=== PATIENT | male | born 2000 | race Caucasian/White ===

== ENCOUNTER 2023-10-29 22:45 | Emergency (ER) | payer OTHER, SELFPAY ==
[2023-10-29 22:49] VITALS: BP 170/100; PULSE 135; RESP 18; TEMP 36.6; O2SAT 97; BMI 33.5
--- NOTE | 2023-10-29 23:08 | PC.NURSE ---
Pt states he has aspergers and is known to chewing on fingernail. On thursday noticed pain and swelling to right middle finger and was seen and evaluated at [place] [facility] where they did an i&d with a small amout of drainage. States they only put him on an oral antibiotic and since then the pain and swelling has increased.
--- NOTE | 2023-10-29 23:21 | ED_ITS ---
HPI - Extremity Injury (Upper) General Chief Complaint: Extremity Injury, Upper Stated Complaint: R HAND MIDDLE FINGER POSS INFECTION Time Seen by Provider: 10/29/23 22:50 Source: patient Mode of arrival: walk-in Limitations: no limitations History of Present Illness HPI narrative: The patient chews his nails and cuticles. He developed redness, pain and swelling on 10/26/23 in the right middle finger. He went to [place] ED 10/27/23 and was prescribed keflex. He also had an incision and drainage of the paronychia but only a tiny incision , per the mother, and not much drained out . She gave the patient ibuprofen and they soaked the finger in epsom salts but despite that and taking the antibiotics, the redness and pain has worsened. The redness now extends to the right 3rd MCP. No systemic complaints such as fever or vomiting. Related Data Previous Rx's Medication Instructions Recorded clindamycin HCl 150 mg capsule 450 mg (3 x 150 mg) PO QID 7 days 10/30/23 #84 caps Allergies Allergy/AdvReac Type Severity Reaction Status Date / Time No Known Drug Allergies Allergy Verified 10/29/23 22:55 [facility] Social History Smoking status: Never smoker Exam Narrative Exam Narrative: Nurses notes and vital signs reviewed and patient is not hypoxic. afebrile General: Anxious but in no apparent distress. Cardiovascular: Tachycardia. Respiratory: No accessory muscle use or respiratory distress. Lungs are clear to auscultation, no wheezing, rales or rhonchi Musculoskeletal: RIGHT HAND: tenderness, swelling, erythema and warmth to the right middle finger with marked swelling at the distal right 3rd phalanx. Remainder of the right hand with normal ROM. no right upper extremity edema/s welling Neurological: A&O x4. No cranial nerve dysfunction observed. No truncal ataxia. Moves all extremities. Sensation intact. Psychiatric: Cooperative and interactive. Normal mood and affect. Constitutional Vital Signs, click to edit/add: Last Vital Signs Temp 97.9 F 10/29/23 22:49 Pulse 127 H 10/30/23 00:28 Resp 16 10/30/23 00:28 BP 126/88 10/30/23 00:28 Pulse Ox 100 10/30/23 00:28 O2 Del Method Room Air 10/29/23 22:49 Course Vital Signs Vital signs: Vital Signs Temperature 97.9 F 10/29/23 22:49 Pulse Rate 135 H 10/29/23 22:49 Respiratory Rate 18 10/29/23 22:49 Blood Pressure 170/100 H 10/29/23 22:49 Pulse Oximetry 97 10/29/23 22:49 Oxygen Delivery Method Room Air 10/29/23 22:49 Temperature 97.9 F 10/29/23 22:49 Pulse Rate 127 H 10/30/23 00:28 Respiratory Rate 16 10/30/23 00:28 Blood Pressure 126/88 10/30/23 00:28 Pulse Oximetry 100 10/30/23 00:28 Oxygen Delivery Method Room Air 10/29/23 22:49 MDM - Extremity Injury (Upper) MDM Narrative Medical decision making narrative: The patient is very anxious and has a fear of needles and surgical procedures. He is autistic. I talked with him and the mother and I were able to get him to agree to get a peripheral IV so that he could be given ativan and dilaudid. He will also be given Zofran to prevent vomiting. I will then apply a digital block to the patient's right middle finger so that I can properly drain the paronychia. he will receive IV Clindamycin 900mg and then be discharged home with prescription for additional Clindamycin to be taken orally QID. I will refer him to Dr Aggarwal in [place] - general surgeon regional controller - for follow up. Mother given samples of Hibiclens solution to use for soaking of the right hand until the infection clears. Incision and drainage: A single layer of iodine was used to prep the area. Drapes were placed to ensure isolation of the abscess and surrounding skin tissue. A digital block was performed with 1% lidocaine. Incision was made with an 11 blade to the full dimension of the abscess, significant amount purulent material was expressed. Culture was obtained and sent to the lab. The cavity was irrigated with syringe of bupivicaine after flushing with saline. Pressure was held for 10 minutes to staunch bleeding and then a dry sterile dressing was placed. Patient tolerated the procedure well. Discharge Plan Discharge Chief Complaint: Extremity Injury, Upper Clinical Impression: Paronychia of finger of right hand, Cellulitis of finger of right hand Patient Disposition: Home, Self-Care Time of Disposition Decision: 00:41 Prescriptions / Home Meds: New clindamycin HCl 150 mg capsule 450 mg PO QID 7 Days Qty: 84 0RF Instructions: Paronychia (ED), Abscess Incision and Drainage (DC) Stand Alone Forms: Portal Instructions Referrals: Physician,Non-Staff, MD [Primary Care Provider] - 1 week Procedures ED ID Incision & Drainage I&D Type: abcess Site: finger (3rd) Side (if applicable): right Sedation/analgesia: none Anesthetic used: bupivacaine Technique: incised with #11 blade Irrigation: Yes Packing used: none
[2023-10-29] MEDS: LORAZEPAM 2 MG/ML 1 ML VIAL 1 MG IV (23:38)
[2023-10-29] MEDS: ONDANSETRON PF 4 MG/2 ML VIAL IV (23:41)
[2023-10-29] MEDS: CLINDAMYCIN PHOSPHATE/D5W 900 MG/50 ML PIGGYBACK 100 MG IV (23:56)
[2023-10-29] MEDS: HYDROMORPHONE HCL 1 MG/ML CARTRIDGE IVP (23:56)
[2023-10-30 00:28] VITALS: BP 126/88; PULSE 127; RESP 16; O2SAT 100
[2023-10-30] MEDS: BUPIVACAINE HCL 0.5% PF 50 MG/10 ML VIAL INJ (00:38)
--- NOTE | 2023-10-30 00:56 | PC.NURSE ---
right middle finger dressed in telfa and coban
== END 2023-10-30 01:01 | disposition home or self-care (01) ==
PROVIDERS: Emergency Provider Emergency Medicine
DX: L03.011 Cellulitis of right finger (principal); F84.0 Autistic disorder
CPT/HCPCS: 10060; 87070; 87150; 87186; 96365; 96375; 99284; J0665; J0736; J1170; J2060; J2405

== ENCOUNTER 2023-11-01 12:18 | Observation (INO) | payer OTHER, SELFPAY ==
[2023-11-01] VITALS (7 sets, daily range): BP systolic 138–156; BP diastolic 88–94; PULSE 87–107; RESP 16–18; TEMP 36.7–36.8; O2SAT 95–98; BMI 33.5; BMI 32.6
--- OUTSIDE RECORDS SUMMARY | 2023-11-01 12:40 | XMS_ITS ---
Author Name Unknown Organization [facility] Care Team Providers Care Graduate Teacher Education Name Role Phone NO PCP, NO PCP Primary Care Unavailable HERLINDA LECHUGA Attending Unavailable SUSANNE MERA Attending Unavailable SUSANNE MERA Referring Unavailable NO PCP, NO PCP Primary Care Unavailable NO PCP, NO PCP Primary Care Unavailable LUCIEN KENT Attending Unavailable LUCIEN KENT Attending Unavailable LUCIEN KENT Referring Unavailable NO PCP, NO PCP Primary Care Unavailable Purpose PROBLEMS DATE TYPE CONDITION / CODE ATTENDING STATUS [facility] 10/29/2023 Unknown Local infection of the skin and subcutaneous tissue, unspecified / L08.9(ICD-10) LUCIEN KENT [facility] 10/27/2023 Unknown Cellulitis of ri ght finger / L03.011(ICD-10) HERLINDA LECHUGA [facility] 10/27/2023 Unknown Finger Pain / FREETEXT(AOF) HERLINDA LECHUGA [facility] 10/27/2023 Unknown SWELLING MIDDLE RT FINGER / UNK(Unknown) HERLINDA LECHUGA [facility] PROCEDURES No Procedure Records Found VITAL SIGNS No Vital Signs Records Found RESULTS XR HAND RT MIN 3 VWS Observed: 9:39 PM Status: COMPLETED Source: [facility] REPOSITORY XR HAND RT MIN 3 VWS XR HAND RT MIN 3 VWS CLINICAL STATEMENT: 23 years old Male with swelling and pain of the 3rd finger. COMPARISON: Right hand radiographs dated 10/27/2023. FINDINGS: No acute fracture or dislocation. Visualized joints are adequate anatomic alignment. No degenerative change. Severe soft tissue swelling of the 3rd finger, significantly increased from previous exam. No radiopaque foreign body. IMPRESSION: * Increased severe soft tissue swelling of the 3rd finger without osseous abnormality. Approved by Resident Jason Burns DO on 10/29/2023 9:44 PM INilay MD have personally reviewed the image(s) and agree with and/or edited the report Finalized by Nilay Murillo MD on 10/29/2023 9:47 PM XR HAND RT MIN 3 VWS Observed: 5:34 PM Status: COMPLETED Source: [facility] XR HAND RT MIN 3 VWS XR HAND RT MIN 3 VWS CLINICAL STATEMENT: 23 years old Male with pain and swelling at this 3rd finger after biting his nail. COMPARISON: None. FINDINGS: No acute fracture or dislocation. Visualized joints are adequate anatomic alignment. No degenerative change. No suspicious osseous lesion. Soft tissue swelling of the mid and distal portion of the 3rd finger without osseous abnormality. No radiopaque foreign body. IMPRESSION: * Soft tissue swelling of the mid and distal portion of the 3rd finger without adjacent osseous abnormality. Approved by Resident Jason Burns DO on 10/27/2023 5:37 PM Jay Gordon MD have personally reviewed the image(s) and agree with and/or edited the report Finalized by Jay Wallace MD on 10/27/2023 5:43 PM ALLERGIES DATE TYPE / CODE NAME / CODE REACTION SEVERITY SOURCE Drug Class/[id number](SNO MED CT) NO KNOWN ALLERGIES [facility] ENCOUNTERS ADMIT/DISCHARGE ACCOUNT NUMBER ADMITTING ENCOUNTER CLASS LOCATION SOURCE 10/29/2023/ 4 [id number] Emergency Building:[facility]_ EDRoom: 12Bed: 12 [facility] 10/29/2023/ 4 [id number] Emergency Building:[facility] XR [facility] 10/27/2023/ 4 [id number] Emergency Building:[facility]_ EDRoom: 2Bed: 02 [facility] 10/27/2023/ [id number] Emergency Building:[facility]_ XR [facility] FUNCTIONAL STATUS No Functional Status Records Found EQUIPMENT No Equipment Records Found PAYERS ENCOUNTER GUARANTOR PAYER SUBSCRIBER SOURCE 10/29/2023 ARMIDA ROSADOB: [id number] [place] [address]Mzd: (HP) Primary Insurance:[place] [employer] [facility] [id number] Date:2021-08-15 CHELA CASTELLANOS JR.: [id number] [place] [address]Lzo: (HP) [facility] 10/29/2023 ARMIDA SYKESB: [id number] [place] [address]Sjc: (HP) Primary Insurance:[employer]raPolicy Number: [id number] Date:2021-08-15 CHELA CASTELLANOS JR.: [id number] [place] [address]Ycj: (HP) [facility] 10/27/2023 ARMIDA SYKESB: [id number] [place] [address]Owa: (HP) Primary Insurance:[employer] [employer] ScientificPolicy Number: [id number] Date:2021-08-15 CHELA CASTELLANOS JR.: [id number] [place] [address]Wgq: (HP) [facility] 10/27/2023 ARMIDA SYKESB: [id number] [place] [address]Zsp: (HP) Primary Insurance:[employer] [place] [employer] [facility] Number: [id number] Date:2021-08-15 CHELA CASTELLANOS JR.: [id number] [place] [address]Urh: () [facility] SOCIAL HISTORY No Social History Records Found FAMILY HISTORY No Family History Records Found No Status Records Found ADVANCE DIRECTIVES No Advanced Directives Records Found INFORMATION SOURCE DATE CREATED AUTHOR AUTHOR'S PAZ ATION 11/01/2023 [place]
--- NOTE | 2023-11-01 14:18 | ED.GENADUL1 ---
HPI - General Adult General Chief complaint: Recheck/Abnormal Lab/Rx Stated complaint: SKIN ABCESS Time Seen by Provider: 11/01/23 13:52 Source: patient Mode of arrival: walk-in Limitations: no limitations History of Present Illness HPI narrative: 23-year-old male presents for pain redness and swelling to his right third finger. 3 days ago he had paronychia incised and drained and he has been on clindamycin. Since then its become more red and painful and he is having trouble bending his finger. He is accompanied by his mother. The pain is moderate and continuous. Related Data Previous Rx's Medication Instructions Recorded clindamycin HCl 150 mg capsule 450 mg (3 x 150 mg) PO QID 7 days 10/30/23 #84 caps Allergies Allergy/AdvReac Type Severity Reaction Status Date / Time No Known Drug Allergies Allergy Verified 11/01/23 12:24 Review of Systems ROS Narrative A ten point review of systems is negative except as noted above. PFSH PFSH Social History Smoking status: Never smoker Exam Narrative Exam Narrative: Nurses note and vital signs reviewed and patient is not hypoxic. General: The patient appears well and in no apparent distress. Patient is resting comfortably on cart. Skin: Warm, dry, no pallor noted. There is no rash noted. Head: Normocephalic, atraumatic Eye: Normal conjunctiva, no drainage Ears, Nose, Mouth, and Throat: oral mucosa is moist. Nares patent. Cardiovascular: Regular Rate and Rhythm Respiratory: Patient is in no distress, no accessory muscle use, lungs are clear to auscultation, no wheezing, rales or rhonchi Back: non-tender GI: Soft and nontender Musculoskeletal: Right third finger is swollen with erythema and he has in a slightly flexed position. Extension causes great discomfort and palpation into the palm of the hand over the third metacarpal area causes significant discomfort as well. Neurological: A&O, normal speech Psychiatric: Cooperative Constitutional Vital Signs, click to edit/add: Last Vital Signs Temp 98.3 F 11/01/23 12:24 Pulse 87 11/01/23 12:24 Resp 16 11/01/23 12:24 BP 146/93 H 11/01/23 12:24 Pulse Ox 97 11/01/23 12:24 O2 Del Method Room Air 11/01/23 12:24 Course Vital Signs Vital signs: Vital Signs Temperature 98.3 F 11/01/23 12:24 Pulse Rate 87 11/01/23 12:24 Respiratory Rate 16 11/01/23 12:24 Blood Pressure 146/93 H 11/01/23 12:24 Pulse Oximetry 97 11/01/23 12:24 Oxygen Delivery Method Room Air 11/01/23 12:24 Temperature 98.3 F 11/01/23 12:24 Pulse Rate 87 11/01/23 12:24 Respiratory Rate 16 11/01/23 12:24 Blood Pressure 146/93 H 11/01/23 12:24 Pulse Oximetry 97 11/01/23 12:24 Oxygen Delivery Method Room Air 11/01/23 12:24 Medical Decision Making MDM Narrative Medical decision making narrative: My clinical impression is that he has flexor tenosynovitis. The culture grew out Eikenella. Case discussed with Dr. Regan and the patient is started on IV Rocephin and he is being admitted with possible surgery tomorrow. Findings are discussed with the patient and his mother. Discharge Plan Discharge Chief Complaint: Recheck/Abnormal Lab/Rx Time of Disposition Decision: 14:20 Prescriptions / Home Meds: No Action clindamycin HCl 150 mg capsule 450 mg PO QID 7 Days Qty: 84 0RF
--- NOTE | 2023-11-01 14:40 | P.HP_ITS ---
H&P: HPI History of Present Illness Chief complaint: SKIN ABCESS Narrative: Patient seen in outside hospital for paronychia and started on clindamycin. Pain became worse and presented to our ER where he did have the area drained culture obtained, patient has been taking his antibiotics but pain and swelling is worsening. Patient unable to extend finger fully. Case was discussed with orthopedics, IV antibiotics are necessary to improve the infection control and possible surgical intervention tomorrow. Patient admitted to observation Review of Systems ROS Status of ROS 10 or more systems reviewed and unremark able except as noted in history and below PFSH PFSH Social History Smoking status: Never smoker Meds Home Medications and Allergies Home Medications Medication Instructions Recorded Confirmed Type clindamycin HCl 150 mg capsule 450 mg (3 x 150 mg) PO QID 7 days 10/30/23 Rx #84 caps Allergies Allergy/AdvReac Type Severity Reaction Status Date / Time No Known Drug Allergies Allergy Verified 11/01/23 12:24 Exam Constitutional Vital Signs, click to edit/add: Last Vital Signs Temp 98.3 F 11/01/23 12:24 Pulse 98 H 11/01/23 14:24 Resp 18 11/01/23 14:24 BP 143/94 H 11/01/23 14:24 Pulse Ox 98 11/01/23 14:24 O2 Del Method Room Air 11/01/23 12:24 Documenting provider has reviewed patient's vital signs: yes Common normals: apparent distress (Patient nervous, has asberger's) Exam limitations: no altered mental status General appearance: cooperative; not comfortable Chest Common normals: inspection of chest normal Respiratory Common normals: normal respiratory effort Cardio Common normals: regular rate and regular rhythm GI Common normals: Normal to inspection, nondistended, normoactive bowel sounds present Extremity Right upper extremity: hand and digits (Swelling distal third digit unable to extend) Assessment and Plan Assessment and Plan (1) Flexor tenosynovitis of finger: Assessment and Plan: Start antibiotics, blood cultures trying to be obtained, check on labs, consult orthopedics (2) Cellulitis of finger of right hand: Assessment and Plan: See above (3) Paronychia of finger of right hand: Assessment and Plan: See above (4) Asperger syndrome: Assessment and Plan: Patient may need to be sedated for blood draw, he needed to be sedated in the ER to have his I&D of his paronychia Plan Observation overnight, orthopedics to see in a.m. and determine disposition for surgery
[2023-11-01 14:45] LABS: Basophils Absolute Auto 0.1 10^3/uL (0.0-0.1); Basophils Percent Auto 0.7 % (0.2-2.0); Eosinophils Absolute Auto 0.1 10^3/uL (0.0-0.7); Eosinophils Percent Auto 0.8 % (0.9-7.0); Hemoglobin 14.8 g/dL (14.0-18.0); Immature Granulocytes Abs Auto 0.01 10^3/uL (0.00-0.03); Immature Granulocytes Pct Auto 0.1 % (0.0-0.5); Lymphocytes Absolute Auto 1.6 10^3/uL (1.2-3.8); Lymphocytes Percent Auto 21.4 % (20.5-60.0); Mean Corpuscular HGB Conc 33.6 g/dL (29.9-35.2); Mean Corpuscular Hemoglobin 32.9 pg (25.9-34.0); Mean Corpuscular Volume 97.8 fL (80.0-94.0); Mean Platelet Volume 9.8 fL (9.5-13.5); Monocytes Absolute Auto 0.6 10^3/uL (0.3-0.8); Monocytes Percent Auto 7.4 % (1.7-12.0); Neutrophils Absolute Auto 5.2 10^3/uL (1.4-6.5); Neutrophils Percent Auto 69.6 % (43.0-75.0); Platelet Count 371 10^3/uL (150-450); Red Cell Distribution Width 12.8 % (11.0-15.0); White Blood Count 7.5 10^3/uL (4.0-11.0)
[2023-11-01] MEDS: CEFTRIAXONE 1,000 MG in 0.9 % SODIUM CHLORIDE 50 ML 100 MG IV ×2 (14:45→17:17)
[2023-11-01 14:56] LABS: Erythrocyte Sedimentation Rate 71 mm/hr (<=15)
[2023-11-01 14:57] LABS: Alanine Aminotransferase 26 U/L (16-63); Albumin Globulin Ratio 0.9; Alkaline Phosphatase 42 U/L (46-116); Anion Gap 10.8; Aspartate Amino Transferase 20 U/L (15-37); BUN Creatinine Ratio 8.1; Bilirubin Total 0.7 mg/dL (0.2-1.0); Calcium 9.4 mg/dL (8.5-10.1); Carbon Dioxide 29.1 mmol/L (21.0-32.0); Chloride 102 mmol/L (98-107); Estimated GFR (African America >60 (>=60); Estimated GFR (Non-African Ame >60 (>=60); Globulin 4.5 g/dL; Glucose 96 mg/dL (74-106); Potassium 3.9 mmol/L (3.5-5.1); Sodium 138 mmol/L (136-145); Total Protein 8.5 g/dL (6.4-8.2)
[2023-11-01 14:58] LABS: C Reactive Protein 3.17 mg/dL (<=0.50)
[2023-11-01 15:02] LABS: INR 0.98; Prothrombin Time 10.4 sec (9.0-11.6)
[2023-11-01 15:07] LABS: Lactate/Lactic Acid 0.8 mmol/L (0.4-2.0)
[2023-11-01 15:17] LABS: PROCALCITONIN <0.05 ng/mL (0.00-0.50)
--- OUTSIDE RECORDS SUMMARY | 2023-11-01 15:33 | XMS_ITS | CCD ---
Author Name Unknown Address [address] [place] [id number] Organization [facility] Care Team Providers Care Communication Equipment Repairer Name Role Phone NO PCP, NO PCP Primary Care Unavailable HERLINDA LECHUGA Attending Unavailable SUSANNE MERA Attending Unavailable SUSANNE MERA Referring Unavailable NO PCP, NO PCP Primary Care Unavailable NO PCP, NO PCP Primary Care Unavailable LUCIEN KENT Attending Unavailable LUCIEN KENT Attending Unavailable LUCIEN KENT Referring Unavailable NO PCP, NO PCP Primary Care Unavailable Problems Problem Classification Problem Date Documented Da te Episodic/Chronic Skin and subcutaneous tissue infections (2 sources) Local infection of the skin and subcutaneous tissue, unspecified; Translations: [Cellulitis of right finger] Onset: 10-27-2023 Episodic Unclassified (1 source) Finger Pain Onset: 10-27-2023 Unclassified (1 source) SWELLING MIDDLE RT FINGER Onset: 10-27-2023 Results Test Name Value Interpretation Reference Range Facil ity XR HAND RT MIN 3 VWSon 10-29 XR HAND RT MIN 3 VWS XR HAND RT MIN 3 VWS XR [...] Jason Burns DO on 10/29/2023 9:44 PM Nilay Gordon MD have personally reviewed the image(s) and agree with and/or edited the report Finalized by Nilay Murillo MD on 10/29/2023 9:47 PM Normal [facility] XR HAND RT MIN 3 VWSon 10-27 XR HAND RT MIN 3 VWS XR HAND RT MIN 3 VWS XR [...] Jason Burns DO on 10/27/2023 5:37 PM I, Jay Wallace MD have personally reviewed the image(s) and agree with and/or edited the report Finalized by Jay Wallace MD on 10/27/2023 5:43 PM Normal [facility] Encounters Encounter Date Encounter Type Care Provider Facility Start: 10-29-2023 End: 10-30-2023 Emergency department patient visit LUCIEN SANTOS DONTE [facility] Start: 10-27-2023 End: 10-28-2023 Emergency department patient visit SUSANNE MERA [facility] Payers Date Payer Category Payer Unknown [id number] 1998 Unknown [id number] [id number] [id number] 1998 Unknown [id number] 2.16.8 [id number] 1998 Unknown [id number] 2.16.8 [id number] 1998 Unknown [id number] 2.16.8 [id number] Summary Purpose Family History No Family History Records Found Advance Directives No Advanced Directives Records Found Additional Source Comments (unrecognized sect ion and content) No Status Records Found INFORMATION SOURCE (unrecogn ized section and content) DATE CREATED AUTHOR 11/01/2023 [facility] FOR RECORDS PERTAINING TO PATIENTS WHO ARE OR HAVE BEEN ENROLLED IN A CHEMICAL DEPENDENCY/SUBSTANCEABUSE PROGRAM, SOME INFORMATION MAY BE OMITTED. This clinical summary was aggregated from multiple sources. Caution should be exercised in using it in the provision of clinical care. This summary normalizes information from multiple sources, and as a consequence, information in this document may materially change the coding, format and clinical context of patient data. In addition, data may be omitted in some cases. CLINICAL DECISIONS SHOULD BE BASED ON THE PRIMARY CLINICAL RECORDS. [facility] [employer] [facility]. provides no warranty or guarantee of the accuracy or completeness of information in this document.
[2023-11-02 04:42] VITALS: BP 137/85; PULSE 110; RESP 18; TEMP 36.6; O2SAT 98
[2023-11-02 04:43] VITALS: O2SAT 98
[2023-11-02 05:54] LABS: Basophils Absolute Auto 0.1 10^3/uL (0.0-0.1); Basophils Percent Auto 0.7 % (0.2-2.0); Eosinophils Absolute Auto 0.1 10^3/uL (0.0-0.7); Eosinophils Percent Auto 1.3 % (0.9-7.0); Hematocrit 43.2 % (42.0-54.0); Hemoglobin 14.5 g/dL (14.0-18.0); Immature Granulocytes Abs Auto 0.01 10^3/uL (0.00-0.03); Immature Granulocytes Pct Auto 0.1 % (0.0-0.5); Lymphocytes Absolute Auto 3.2 10^3/uL (1.2-3.8); Lymphocytes Percent Auto 35.9 % (20.5-60.0); Mean Corpuscular HGB Conc 33.6 g/dL (29.9-35.2); Mean Corpuscular Hemoglobin 32.7 pg (25.9-34.0); Mean Corpuscular Volume 97.5 fL (80.0-94.0); Mean Platelet Volume 10.4 fL (9.5-13.5); Monocytes Absolute Auto 0.7 10^3/uL (0.3-0.8); Neutrophils Absolute Auto 4.8 10^3/uL (1.4-6.5); Platelet Count 407 10^3/uL (150-450); Red Blood Count 4.43 10^6/uL (4.70-6.10); Red Cell Distribution Width 12.7 % (11.0-15.0); White Blood Count 8.9 10^3/uL (4.0-11.0)
[2023-11-02 06:23] LABS: Alanine Aminotransferase 26 U/L (16-63); Albumin Globulin Ratio 0.9; Albumin Level 3.7 g/dL (3.4-5.0); Alkaline Phosphatase 38 U/L (46-116); Anion Gap 15.3; Aspartate Amino Transferase 18 U/L (15-37); BUN Creatinine Ratio 9.8; Bilirubin Total 0.4 mg/dL (0.2-1.0); Calcium 9.1 mg/dL (8.5-10.1); Carbon Dioxide 25.7 mmol/L (21.0-32.0); Chloride 104 mmol/L (98-107); Estimated GFR (African America >60 (>=60); Estimated GFR (Non-African Ame >60 (>=60); Globulin 4.2 g/dL; Glucose 99 mg/dL (74-106); Sodium 141 mmol/L (136-145); Total Protein 7.9 g/dL (6.4-8.2)
[2023-11-02 06:55] LABS: C Reactive Protein 2.36 mg/dL (<=0.50)
[2023-11-02 07:09] LABS: Erythrocyte Sedimentation Rate 53 mm/hr (<=15)
--- NOTE | 2023-11-02 08:45 | PM.PN ---
Exam Constitutional Vital Signs, click to edit/add: Last Vital Signs Temp 97.9 F 11/02/23 04:42 Pulse 110 H 11/02/23 04:42 Resp 18 11/02/23 04:42 BP 137/85 11/02/23 04:42 Pulse Ox 98 11/02/23 04:43 O2 Del Method Room Air 11/02/23 04:43 Progress Note: Objective Labs Labs: Short CBC 11/01/23 11/02/23 Range/Units 14:33 04:39 WBC 7.5 8.9 (4.0-11.0) 10^3/uL Hgb 14.8 14.5 (14.0-18.0) g/dL Hct 44.0 43.2 (42.0-54.0) % Plt Count 371 407 (150-450) 10^3/uL BMP 11/01/23 11/02/23 14:33 04:39 Sodium 138 141 Potassium 3.9 4.0 Chloride 102 104 Carbon Dioxide 29.1 25.7 BUN 8.0 10.0 Creatinine 0.99 1.02 Glucose 96 99 Calcium 9.4 9.1 Liver Function 11/01/23 11/02/23 Range/Units 14:33 04:39 Total Bilirubin 0.7 0.4 (0.2-1.0) mg/dL AST 20 18 (15-37) U/L ALT 26 26 (16-63) U/L Alkaline Phosphatase 42 L 38 L (46-116) U/L Albumin 4.0 3.7 (3.4-5.0) g/dL Progress Note: A&P Assessment and Plan (1) Flexor tenosynovitis of finger: (2) Cellulitis of finger of right hand: (3) Paronychia of finger of right hand: (4) Asperger syndrome:
--- NOTE | 2023-11-02 09:47 | CM.NOTE ---
Rounds made with Dr. Montero. Awaiting Orthopod for plan of care. Fredo and family verbalizes understanding.
[2023-11-02 12:18] VITALS: O2SAT 98
[2023-11-02] MEDS: DIAZEPAM 10 MG/2 ML SYRINGE 5 MG IV (12:19)
[2023-11-02 13:44] VITALS: BP 124/79; PULSE 95; RESP 16; TEMP 36.7; O2SAT 98
--- NOTE | 2023-11-02 15:22 | P.ORCN_ITS ---
History of Present Illness HPI Consult date: 11/02/23 Consult reason: other (Right long finger infection) Chief complaint: SKIN ABCESS, Flexor Tenosynovitis Narrative: Patient is a 23-year-old who presented to the emergency room yesterday for right long finger infection. Patient had been previously treated at an outside facility and placed on Keflex. Symptoms worsened. 2 days prior to admission he was in our emergency room where they paronychia was lanced and he was placed on antibiotics. Symptoms progressively worsened and he presented to the hospital yesterday where he was admitted for IV antibiotics and possible surgical treatment. Patient reports symptoms have been stable since being admitted yesterday. Review of Systems ROS Status of ROS 10 or more systems reviewed and unremark able except as noted in history and below PFSH PFS Family History (Updated 11/01/23 @ 16:06 by Sophie Domingo) Grandfather Family history of CHF (congestive heart failure) Family history of diabetes mellitus Family history of hypertension Family history of myocardial infarction Family history of stroke Mother Family history of COPD (chronic obstructive pulmonary disease) Father Family history of hypertension Grandmother Family history of hypertension Other Family history not known due to adoption Social History (Updated 11/01/23 @ 16:08 by Sophie Domingo) Within the past year, how often did you have a drink containing alcohol: never Score interpretation: A score less than 4 is consistent with normal alcohol consumption. Smoking status: Never smoker Non-prescribed substance use: denies use Previous occupational history: Unemployed Highest level of school completed/degree received: high school graduate Are you now , , , , never or living with a partner: never In a typical week, how many times do you talk on the telephone with family, friends, or neighbors: once per week How often do you get together with friends or relatives: once per week How often do you attend roman catholic or congregational services: 4 or more times per year Do you belong to any clubs or organizations such as roman catholic groups unions, fraternal or athletic groups, or school groups: yes Total score: 2 Score interpretation: A score of greater than or equal to 2 indicates the lowest level of social isolation. Little interest or pleasure in doing things: not at all Feeling down, depressed, or hopeless: not at all Feel stressed/tense/nervous/anxious/difficulty sleeping: not at all Due to disability, difficulty making decisions: Yes Do you think of yourself as: straight/heterosexual Gender Identity: male Meds Home Medications and Allergies Home Medications Medication Instructions Recorded Confirmed Type clindamycin HCl 150 mg capsule 450 mg (3 x 150 mg) PO QID 7 days 10/30/23 Rx #84 caps Allergies Allergy/AdvReac Type Severity Reaction Status Date / Time No Known Drug Allergies Allergy Verified 11/01/23 12:24 Exam Narrative Exam Narrative: On exam today he is in no obvious distress. Right long finger is mildly swollen. No erythema. Finger is held in a slightly flexed position and with passive finger extension and at about 15 degrees he starts to develop some pain. No tenderness within his palm. Mild tenderness over the flexor tendon at the PIP joint. No dorsal sided tenderness. No tenderness over the paronychia I and no fluctuance over the area where this was drained. Constitutional Vital Signs, click to edit/add: Last Vital Signs Temp 98.0 F 11/02/23 13:44 Pulse 95 H 11/02/23 13:44 Resp 16 11/02/23 13:44 BP 124/79 11/02/23 13:44 Pulse Ox 98 11/02/23 13:44 O2 Del Method Room Air 11/02/23 13:44 Results Labs Labs: Abnormal lab results 11/02/23 Range/Units 04:39 RBC 4.43 L (4.70-6.10) 10^6/uL MCV 97.5 H (80.0-94.0) fL ESR 53 H (<=15) mm/hr Alkaline Phosphatase 38 L (46-116) U/L C-Reactive Protein 2.36 H (<=0.50) mg/dL H & H 11/01/23 11/02/23 Range/Units 14:33 04:39 Hgb 14.8 14.5 (14.0-18.0) g/dL Hct 44.0 43.2 (42.0-54.0) % Coagulation 11/01/23 Range/Units 14:33 INR 0.98 All other labs normal. Assessment and Plan Assessment and Plan (1) Flexor tenosynovitis of finger: (2) Cellulitis of finger of right hand: (3) Paronychia of finger of right hand: (4) Asperger syndrome: Plan For his right long finger infection I would recommend continuing with the IV Rocephin. At this time no surgical treatment is indicated. I discussed with the patient and his parents that the hope would be with IV antibiotics his symptoms resolved. Possibility exists that he would need a irrigation and debridement if he gets worse. If the patient is to be discharged and receive outpatient IV antibiotics would want to see him back in my office on Thursday for repeat evaluation.
--- NOTE | 2023-11-02 15:28 | SWNOTE1 ---
Nursing reached out to SW in regards to IV anbx as an YASHIRA, SW advised nursing to reach out to Dr. Montero.
[2023-11-02] MEDS: CEFTRIAXONE 2,000 MG in 0.9 % SODIUM CHLORIDE 100 ML 200 MG IV (16:00)
--- NOTE | 2023-11-03 14:34 | PM.DS1 ---
DS: Providers Provider Date of admission: 11/01/23 15:15 Primary care physician: Non-Staff Physician, Consults: 11/01/23 14:35 Consult to Orthopedic Surgery Routine Consulting Provider: Chai Regan Reason For Exam: Reason for consultation: Infectious Tenosynovitis Has provider been notified: Yes DS: Diagnosis Discharge Diagnosis (1) Flexor tenosynovitis of finger: (2) Cellulitis of finger of right hand: (3) Paronychia of finger of right hand: (4) Asperger syndrome: DS: Summary Hospital Course Hospital Course: Patient was admitted after failed outpatient treatment with clindamycin paronychia. Swelling progressed and then had the inability to extend his finger fully consistent with tenosynovitis. Patient was placed on IV antibiotics, Rocephin, improved the following day, so no need for surgical intervention per orthopedics. Just needs to continue with the Rocephin since that was effective. Will set that up as an YASHIRA patient. No further concerns. Follow-up with PCP and orthopedics within the next week. Medications see list. Time Spent with Patient Time attestation: Total time spent providing and/or coordinating discharge services: Exam Constitutional Vital Signs, click to edit/add: Last Vital Signs Temp 98.0 F 11/02/23 13:44 Pulse 95 H 11/02/23 13:44 Resp 16 11/02/23 13:44 BP 124/79 11/02/23 13:44 Pulse Ox 98 11/02/23 13:44 O2 Del Method Room Air 11/02/23 13:44 Documenting provider has reviewed patient's vital signs: yes Common normals: apparent distress (Patient nervous, has asberger's) Exam limitations: no altered mental status General appearance: cooperative; not comfortable Chest Common normals: inspection of chest normal Respiratory Common normals: normal respiratory effort Cardio Common normals: regular rate and regular rhythm GI Common normals: Normal to inspection, nondistended, normoactive bowel sounds present Extremity Right upper extremity: hand and digits (Swelling distal third digit unable to extend) Discharge Plan Discharge Disposition: Home, Self-Care Condition: Good Discharge Medications: New Ceftriaxone [Rocephin 2 gm Vial] 2000 MG 0.9 % Sodium Chloride [Sodium Chloride 0.9% 100 ml] 100 ML 200 mls/hr IV Q24H Ordered By: Tavon Montero MD Last Taken: 11/02/23 16:00 200 mls/hr Discontinued clindamycin HCl 150 mg capsule 450 mg PO QID 7 Days Qty: 84 0RF Activity: increase activity as tolerated Diet: advance to your usual diet Patient Instructions: Ceftriaxone (By injection), Cellulitis (GEN) Forms: Portal Instructions Follow Up Appointments: Nov.04 @ 10am with Dr. Regan [address] [place] [address] [address], [place] Discharge Date/Time: 11/02/23 16:44
--- NOTE | 2023-11-09 15:15 | CM.DCFOLLOWU ---
1st attempt discharge follow up call made by Farhan Paredes on 11/09/23, no answer
== END 2023-11-02 16:44 | disposition home or self-care (01) ==
LOC: ER 14:21 → MS 15:31
PROVIDERS: Admitting Provider Family Medicine; Emergency Provider Emergency Medicine; Visit Provider Family Medicine
DX: M65.841 Other synovitis and tenosynovitis, right hand (principal); L03.011 Cellulitis of right finger; F84.5 Asperger's syndrome; B96.89 Other specified bacterial agents as the cause of diseases classified elsewhere
CPT/HCPCS: 36415; 80053; 83605; 84145; 85025; 85610; 85652; 85730; 86140; 87040; 94667; 94668; 94761; 96365; 96375; 96376; 99285; G0378; J0696; J3360

== ENCOUNTER 2023-11-09 07:36 | Outpatient (RCR) | payer OTHER, SELFPAY ==
[2023-11-03 15:50] VITALS: BP 128/84; PULSE 102; RESP 16; TEMP 36.6; O2SAT 95
--- NOTE | 2023-11-03 16:06 | PC.NURSE ---
1550: Pt to [facility] amb. accompanied by step-dad. Seated in recliner. VSS. Pt. A&O x's 3. Middle finger to right hand red and swollen. Relays infection started from chewing on finger nail. Pt. with existing #[address] to left ac. Site without redness or edema. Flushes easily. Pt. denies pain to site.
[2023-11-03] MEDS: CEFTRIAXONE 1,000 MG in 0.9 % SODIUM CHLORIDE 50 ML 100 MG IV (16:11)
--- NOTE | 2023-11-03 16:12 | PC.NURSE ---
1611: IV Rocephin initiated at this time. Pt. given diet Pepsi. Denies further needs or c/o.
--- NOTE | 2023-11-03 16:21 | PC.NURSE ---
Tolerating infusion without c/o.
--- NOTE | 2023-11-03 16:38 | PC.NURSE ---
1636: IV Rocephin completed at this time without s&s of infiltration. IV flushed with saline. SLF left in arm. Site wrapped with coban. Pt. without c/o. D/c'd amb. to home.
[2023-11-04 15:40] VITALS: BP 140/70; PULSE 104; RESP 18; TEMP 36.6; O2SAT 96
[2023-11-04] MEDS: CEFTRIAXONE 1,000 MG in 0.9 % SODIUM CHLORIDE 50 ML 100 MG IV (15:44)
--- NOTE | 2023-11-04 15:56 | PC.NURSE ---
1540: Pt. to [facility] amb. accompanied by grandmother. Seated in recliner. Denies c/o. Relays right middle finger starting to feel better. Remains pink in color and edematous. No drainage noted. IV in place to left ac. #20 gauge. Flushes easily without redness or edema. Pt. denies c/o pain. IV Rocephin initiated at this time. Pt. give diet pepsi. Denies further needs.
--- NOTE | 2023-11-04 16:20 | PC.NURSE ---
1617: Infusion completed without s&s of adverse reaction. IV flushed and to SLF. Wrapped with coban dressing. Pt. tolerated with no c/o. 1619: D/c'd amb. to home with family.
[2023-11-05 15:40] VITALS: BP 146/90; PULSE 103; RESP 18; TEMP 36.8; O2SAT 95
[2023-11-05] MEDS: CEFTRIAXONE 1,000 MG in 0.9 % SODIUM CHLORIDE 50 ML 100 MG IV (15:44)
[2023-11-06] MEDS: CEFTRIAXONE 1,000 MG in 0.9 % SODIUM CHLORIDE 50 ML 100 MG IV (13:30)
[2023-11-06 13:32] VITALS: BP 136/74; PULSE 90; RESP 18; TEMP 36.4; O2SAT 98
--- NOTE | 2023-11-06 14:07 | PC.NURSE ---
1300 arrival ambulatory. mom with patient. Alert oriented cooperative. #22 iv initiated in rt forearm on 1 attempt, tolerataed well. 1325 iv antibiotic initiated. 1350 IV infused, NSS flush, secured with coban, released ambulatory
[2023-11-07] MEDS: CEFTRIAXONE 1,000 MG in 0.9 % SODIUM CHLORIDE 50 ML 100 MG IV (09:54)
[2023-11-07 10:00] VITALS: BP 145/98; PULSE 105; RESP 16; TEMP 36.6; O2SAT 97
[2023-11-08] MEDS: CEFTRIAXONE 1,000 MG in 0.9 % SODIUM CHLORIDE 50 ML 100 MG IV (11:53)
[2023-11-08 12:10] VITALS: BP 130/83; PULSE 86; RESP 16; TEMP 36.6; O2SAT 98
[2023-11-09 15:42] VITALS: BP 146/79; PULSE 90; RESP 16; TEMP 36.6; O2SAT 97
[2023-11-09] MEDS: CEFTRIAXONE 1,000 MG in 0.9 % SODIUM CHLORIDE 50 ML 100 MG IV (15:50)
--- NOTE | 2023-11-09 16:38 | PM.PN ---
Exam Constitutional Vital Signs, click to edit/add: Last Vital Signs Temp 97.9 F 11/09/23 15:42 Pulse 90 11/09/23 15:42 Resp 16 11/09/23 15:42 BP 146/79 H 11/09/23 15:42 Pulse Ox 97 11/09/23 15:42 O2 Del Method Room Air 11/09/23 15:42
--- NOTE | 2023-11-09 16:44 | PC.NURSE ---
Patient ambulates to department independently accompanied by parent. Existing left AC IV site examined no redness/discomfort. IV site flushed with NS, patent, no discomfort. IV infusion started at 1530. Patient tolerated well, was anxious while nurse's started infusion. ABX infused, tolerated well. IV DC'd, no discomfort, pressure applied to site. Education on IV site and medication provided, understanding verbalized. Ambulated from department to personal vehicle accompanied by parent.
== END 2023-11-26 23:59 | disposition home or self-care (01) ==
LOC: INF 07:36
PROVIDERS: Visit Provider Family Medicine
DX: L03.011 Cellulitis of right finger (principal)
CPT/HCPCS: 96360; 96365